=== PATIENT | female | born 1975 | race Caucasian/White ===

== ENCOUNTER 2018-09-02 10:22 | Emergency (ER) | payer OTHER ==
[~2018-09-02] VITALS: Ht 167.6 cm; Wt 158.8 kg
[~2018-09-02 10:22] MED LIST: ACETAMINOPHEN-1 EAC1 PO; AUGMENTIN 500-1 EACH PO; CIPRO250 M1 PO; IBUPROFEN 800800 MG PO; NAPROSYN500 MG PO; NOHOMEMEDICATIONS; PENICILLIN VK250 MG PO; PERCOCET 5-3251 EACH PO; PYRIDIUM200 M1 PO
[2018-09-02] MEDS ORDERED: BACTRIM DS TAB1 EACH PO (10:38)
[2018-09-02 11:08] LABS: CALCIUM 8.9 mg/dL (8.5-10.1); CREATININE 0.8 mg/dL (0.6-1.3); POTASSIUM 3.5 mmol/L (3.5-5.1)
[2018-09-02 11:41] VITALS: BP 130/83
== END 2018-09-02 11:37 | disposition home or self-care (01) ==
LOC: M.ERS 10:22
PROVIDERS: Emergency Medicine Emergency Medical Services
DX: L03.012 Cellulitis of left finger (principal); L03.011 Cellulitis of right finger; I10 Essential (primary) hypertension; M32.9 Systemic lupus erythematosus, unspecified; F17.210 Nicotine dependence, cigarettes, uncomplicated; Z88.1 Allergy status to other antibiotic agents; Z88.8 Allergy status to other drugs, medicaments and biological substances; Z87.442 Personal history of urinary calculi